=== PATIENT | male | born 1945 | race Caucasian/White ===

== ENCOUNTER 2019-10-22 14:20 | Emergency (ER) | payer OTHER ==
[~2019-10-22] VITALS: Ht 172.7 cm; Wt 57.2 kg
[~2019-10-22 14:20] MED LIST: INTEGRA PLUS CAPSULE PO; OMEPRAZOLE10 MG; OMEPRAZOLE40 MG PO; PEPCID20 MG
[2019-10-22] MEDS ORDERED: TAMS0.4C (14:41)
[2019-10-22] MEDS ORDERED: PRILOSEC OTC20 MG (14:41)
[2019-10-22] MEDS ORDERED: HORIZANT300 MG (14:41)
[2019-10-22] MEDS ORDERED: ZOCOR20 MG (14:42)
[2019-10-22] MEDS ORDERED: CARAFATE1 GM/10 ML (14:42)
[2019-10-22] MEDS ORDERED: VASOTEC20 M1 (14:43)
[2019-10-22] MEDS ORDERED: FOLIC ACID1 MG (14:43)
[2019-10-22] MEDS ORDERED: SALINE NASAL SP88 ML (14:44)
[2019-10-22] MEDS ORDERED: BIOTINEX (14:44)
[2019-10-22] MEDS ORDERED: SPIRIVA RESPIMAT4 G1 (14:45)
[2019-10-22] MEDS ORDERED: VENTOLIN HFA18 GM (14:45)
[2019-10-22] MEDS ORDERED: PROVENTIL HFA6.7 GM (14:45)
== END 2019-10-22 18:04 | disposition home or self-care (01) ==
LOC: ER 14:20
DX: R42 Dizziness and giddiness (principal); J34.1 Cyst and mucocele of nose and nasal sinus

== ENCOUNTER 2023-07-09 10:05 | Emergency (ER) | payer OTHER ==
[~2023-07-09] VITALS: Ht 172.7 cm; Wt 66.2 kg
[~2023-07-09 10:05] MED LIST changes: +BIOTINEX; +CARAFATE1 GM/10 ML; +FOLIC ACID1 MG; +HORIZANT300 MG; +PRILOSEC OTC20 MG; +PROVENTIL HFA6.7 GM; +SALINE NASAL SP88 ML; +SPIRIVA RESPIMAT4 G1; +TAMS0.4C; +VASOTEC20 M1; +VENTOLIN HFA18 GM; +ZOCOR20 MG
== END 2023-07-09 11:57 | disposition home or self-care (01) ==
LOC: ER 10:06
DX: R53.81 Other malaise (principal); Z87.09 Personal history of other diseases of the respiratory system